=== PATIENT | male | born 1940 | race Caucasian/White ===

== ENCOUNTER → 2018-03-31 | Outpatient (CLI) | payer MEDICARE ==
--- NOTE | 2018-03-31 14:19 | Diagnostic Imaging Report ---
INDICATION: Left hand injury from a fall. There is diffuse calcific arterial sclerosis. There is no fracture, dislocation or other acute abnormality seen in the hand. IMPRESSION: No acute abnormality seen in the hand. Dictated by: Dictated on workstation # [id number]
--- NOTE | 2018-03-31 14:25 | Diagnostic Imaging Report ---
INDICATION: Left wrist injury from a fall. FINDINGS: Three views of the left wrist show no fracture, dislocation, or other acute abnormalities. IMPRESSION: Diffuse calcific arteriosclerosis. No acute abnormality is seen in the wrist. Dictated by: Dictated on workstation # [id number]
--- NOTE | 2018-03-31 14:25 | Diagnostic Imaging Report ---
INDICATION: Injury from a fall. EXAMINATION: Left elbow. FINDINGS: Three views of the left elbow show no fracture, dislocation, or pathologic effusion. IMPRESSION: Negative left elbow. Dictated by: Dictated on workstation # [id number]
== END ==
LOC: RAD FS 13:01
PROVIDERS: ATTEND Physician Assistant
DX: S59.902D Unspecified injury of left elbow, subsequent encounter (principal); S69.92XD Unspecified injury of left wrist, hand and finger(s), subsequent encounter; I70.90 Unspecified atherosclerosis; W19.XXXA Unspecified fall, initial encounter
CPT/HCPCS: 73080; 73110; 73130

== ENCOUNTER → 2021-02-02 | Outpatient (CLI) | payer MEDICARE ==
--- NOTE | 2021-02-02 13:31 | Diagnostic Imaging Report ---
PROCEDURE: US Bilateral lower extremity arterial. TECHNIQUE: Multiple Real-time grayscale images are obtained through both lower extremity arterial systems with color Doppler imaging and color Doppler spectral analysis. INDICATION: Nonhealing ulcer left heel. FINDINGS: The patient has normal waveforms in the arterial systems of both legs from the groins past the knees. There is a monophasic wave pattern below the knees bilaterally. There is reduced velocity in the posterior tibial arteries bilaterally. IMPRESSION: Small vessel disease with diminished velocities and dampened waveforms in the runoff vessels below the knee. Dictated by: Dictated on workstation # [id number]
--- NOTE | 2021-02-02 14:00 | Diagnostic Imaging Report ---
INDICATION: Lower extremity wound.. TECHNIQUE: Segmental pulse pressures were performed of the upper and lower extremities. FINDINGS: Resting Doppler Blood Pressures RIGHT Brachial: 142 mmHg Ankle (Posterior Tibial): 196 mm Hg Ankle (Dorsalis Pedis): >254 mm Hg Index: 1.32 LEFT Brachial: 148 mmHg Ankle (Posterior Tibial): >254 mm Hg Ankle (Dorsalis Pedis): >254 mm Hg Index: NC IMPRESSION: Ankle-brachial indices as above. Ankle-Brachial Index Diagnosis/Interpretation <=0.90 Peripheral Arterial Disease 0.91-0.99 Borderline 1.00-1.40 Normal >1.40 Concern for noncompressible arteries, (assoc with Diabetes Mellitus) Dictated by: Dictated on workstation # [id number]
== END ==
LOC: RAD 11:00
PROVIDERS: ATTEND Family Medicine
DX: S90.822A Blister (nonthermal), left foot, initial encounter (principal); L97.429 Non-pressure chronic ulcer of left heel and midfoot with unspecified severity; X58.XXXA Exposure to other specified factors, initial encounter
CPT/HCPCS: 93922; 93925